=== PATIENT | female | born 1940 ===

== ENCOUNTER → 2022-08-16 | Day surgery (SDC) | payer MEDICARE ==
[~2022-08-16] MED LIST: Fentanyl 100 MCG/2 ML VIAL ONE; Lidocaine 1% PF 5 ML VIAL ONE; Midazolam HCl 5 mg/5 ml Vial ONE; Sodium Bicarbonate 2.5 MEQ/5 ML VIAL ONE
[2022-08-16 10:20] LABS: Prothrombin Time 10.5 sec (9.5-12.1)
== END ==
LOC: CSHCT 08:48
PROVIDERS: ATTEND Internal Medicine Hematology & Oncology
DX: C91.10 Chronic lymphocytic leukemia of B-cell type not having achieved remission (principal)
CPT/HCPCS: 38222; 85097; 85610; 88184; 88185; 88237; 88264; 88280; 88305; 88311; 88313; J2250; J3010

== ENCOUNTER 2022-09-04 09:53 | Outpatient (CLI) | payer MEDICARE ==
[~2022-09-04 09:53] MED LIST changes: -Fentanyl 100 MCG/2 ML VIAL ONE; +Iopamidol 300 61% 100 ML VIAL FS ONE; -Lidocaine 1% PF 5 ML VIAL ONE; -Midazolam HCl 5 mg/5 ml Vial ONE; -Sodium Bicarbonate 2.5 MEQ/5 ML VIAL ONE
== END 2022-09-04 09:54 | disposition home or self-care (01) ==
LOC: CSHCT 09:53
PROVIDERS: ATTEND Internal Medicine Hematology & Oncology
DX: C91.10 Chronic lymphocytic leukemia of B-cell type not having achieved remission (principal); R59.0 Localized enlarged lymph nodes; R91.8 Other nonspecific abnormal finding of lung field; I70.90 Unspecified atherosclerosis
CPT/HCPCS: 71260; 74177; 82565

== ENCOUNTER 2023-05-10 12:15 | Outpatient (CLI) | payer MEDICARE | END 2023-05-10 12:16 | disposition home or self-care (01) | LOC: CSHRAD 12:15 | PROVIDERS: ATTEND Nurse Practitioner Family | DX: C83.19 Mantle cell lymphoma, extranodal and solid organ sites (principal) | CPT/HCPCS: 71046 ==